=== PATIENT | female | born 1950 | race Caucasian/White ===

== ENCOUNTER 2016-07-03 21:47 | Inpatient (IN) | payer OTHER ==
[~2016-07-03] VITALS: Ht 157.5 cm; Wt 131.1 kg
[~2016-07-03 21:47] MED LIST: ADVAIR 250/501 DISK IH; AMBIEN10 MG PO; CEFDINIR300 MG PO; CELEXA40 MG PO; ECOTRIN325 MG PO; GLUCOPHAGE XR,500 MG PO; GLUCOTROL10 MG PO; LEVEMIR FL100 UNIT/1 SC; LOPRESSOR50 MG PO; MOTRIN800 MG PO; NEXIUM40 MG PO; NORCO 10/3251 TABLET PO; PRAVACHOL20 MG PO; SEROQUEL400 MG PO; SERTRALINE HCL100 MG PO; SOMA350 MG PO; SYNTHROID25 MCG PO; VENTOLIN HFA18 GM IH; ZOFRAN ODT4 MG PO
[2016-07-03 23:01] LABS: EOSINOPHIL (%) 0.8 % (0-5); EOSINOPHIL COUNT 0.1 K/uL (0-0.3); HEMATOCRIT 32.9 % (36.0-46.0); IMMATURE GRANULOCYTE (%) 0.5 % (0.0-0.7); IMMATURE GRANULOCYTE COUNT 0.1 K/uL; INSTRUMENT ABS NEUTROPHIL CT 8.6 K/uL; LYMPHOCYTE COUNT 0.6 K/uL (1.0-2.8); MCH 27.2 PG (29.0-34.0); MCHC 28.3 G/DL (30.0-36.0); MCV 96.2 FL (83-99); MEAN PLAT.VOLUME 8.8 uM^3 (9.5-12.4); MONOCYTE (%) 4.9 % (3-12); MONOCYTE COUNT 0.5 K/uL (0-0.8); NEUTROPHIL (%) 87.3 % (45-76); NEUTROPHIL COUNT 8.6 K/uL (1.8-6.4); PLATELET COUNT 226 K/uL (156-360); RBC DIS.WIDTH-CV 17.6 % (11.8-14.6); RBC DIS.WIDTH-SD 62.4 % (39-53); RED BLOOD COUNT 3.42 M/uL (3.80-5.20); WHITE BLOOD COUNT 9.9 K/uL (4.1-10.2)
[2016-07-03 23:10] LABS: CHLORIDE 107 mEq/L (99-109); POTASSIUM 5.6 mEq/L (3.7-5.4); SODIUM 141 mEq/L (136-147)
[2016-07-03 23:11] LABS: GLUCOSE 105 mg/dL (70-99)
[2016-07-03 23:12] LABS: INTER. NORMALIZED RATIO 1.1; PROTHROMBIN TIME 11.3 (9.2-11.2); PTT 26.1 (25-32)
[2016-07-03 23:13] LABS: ANION GAP 8 MEQ/L (2-14)
[2016-07-03 23:15] LABS: GFR ESTIMATE (CALCULATED) > 59 mL/min/
[2016-07-03 23:16] LABS: UREA NITROGEN (BUN) 34 mg/dL (9-23)
[2016-07-03 23:21] LABS: TROP-I INTERPRETATION NEGATIVE; TROPONIN-I 0.01 ng/mL (0.0-0.30)
[2016-07-03 23:59] LABS: ADD MIUA? YES; BILIRUBIN NEGATIVE; BLOOD NEGATIVE; COLOR YELLOW ((YELLOW)); GLUCOSE (STRIP) NEGATIVE; KETONES NEGATIVE; LEUKOCYTES TRACE; NITRITE NEGATIVE; PROTEIN (STRIP) NEGATIVE; SPECIFIC GRAVITY 1.018 (1.000-1.030); UROBILINOGEN 0.2 MG/DL (0.2-1.0)
[2016-07-04] VITALS (7 sets, daily range): BP systolic 119–178; BP diastolic 58–89
[2016-07-04 00:24] LABS: BACTERIA 1+ /HPF; EPITHELIAL CELLS RARE /HPF; HYALINE CASTS 0-5 /LPF; MUCUS TRACE /LPF; RED BLOOD CELLS 0-5 /HPF (0-5); UCUL ADDED? NO
[2016-07-04] MEDS ORDERED: PRAVACHOL40 MG PO (01:08)
[2016-07-04] MEDS ORDERED: LO-DOSE ASPIRIN81 M2 PO (01:08)
[2016-07-04] MEDS ORDERED: OMEPRAZOLE40 M1 PO (01:09)
[2016-07-04] MEDS ORDERED: LEVEMIR100 UNIT/2 SC (01:10)
[2016-07-04] MEDS ORDERED: HYZAAR 50-121 TABLET PO (01:11)
[2016-07-04] MEDS ORDERED: SYNTHROID75 MCG PO (01:11)
[2016-07-04] MEDS ORDERED: SPIRIVA1 INHALATI IH (01:11)
[2016-07-04] MEDS ORDERED: CARBAMAZEPINE200 MG PO (01:11)
[2016-07-04] MEDS ORDERED: LISINOPRIL10 MG PO (01:11)
[2016-07-04 04:19] LABS: HDL CHOLESTEROL 35 MG/DL (Desirable>=50); LDL CHOLESTEROL 62 mg/dL (Desirable<100); NON-HDL CHOLESTEROL 94 mg/dL (Desirable<160); TOTAL CHOLESTEROL 129 mg/dL (Desirable<200); TRIGLYCERIDES 158 MG/DL (Normal: <150)
[2016-07-04 06:01] LABS: TROP-I INTERPRETATION NEGATIVE; TROPONIN-I < 0.01 ng/mL (0.0-0.30)
[2016-07-04 06:21] LABS: Estimated Average Glucose 143 mg/dL (70-123); HEMOGLOBIN A1c (GLYCOHEMOGLOB) 6.6 % HGB (Below 5.7)
[2016-07-04 08:43] LABS: ANION GAP 10 MEQ/L (2-14); CHLORIDE 109 MEQ/L (99-109); GFR ESTIMATE (CALCULATED) > 59 mL/min/; GLUCOSE 129 mg/dL (70-99); POTASSIUM 5.5 MEQ/L (3.7-5.4); SAMPLE HEMOLYSIS CHECK 0; SAMPLE ICTERIC CHECK 0; SAMPLE LIPEMIA CHECK 0; SODIUM 145 MEQ/L (136-147); UREA NITROGEN (BUN) 26 mg/dL (9-23)
[2016-07-04 09:33] LABS: MCH 27.3 PG (29.0-34.0); MCHC 28.3 G/DL (30.0-36.0); MCV 96.5 FL (83-99); MEAN PLAT.VOLUME 9.3 uM^3 (9.5-12.4); PLATELET COUNT 234 K/uL (156-360); RBC DIS.WIDTH-CV 17.7 % (11.8-14.6); RBC DIS.WIDTH-SD 61.6 % (39-53); RED BLOOD COUNT 3.11 M/uL (3.80-5.20); WHITE BLOOD COUNT 8.4 K/uL (4.1-10.2)
[2016-07-04 11:19] LABS: TROP-I INTERPRETATION NEGATIVE; TROPONIN-I < 0.01 ng/mL (0.0-0.30)
[2016-07-04 21:49] LABS: POINT-OF-CARE METER ID UU14162508
[2016-07-05 03:38] VITALS: BP 119/57
[2016-07-05 06:58] VITALS: BP 140/63
[2016-07-05 07:04] LABS: HEMATOCRIT 31.2 % (36.0-46.0); MCH 26.9 PG (29.0-34.0); MCHC 27.9 G/DL (30.0-36.0); MCV 96.6 FL (83-99); MEAN PLAT.VOLUME 9.4 uM^3 (9.5-12.4); PLATELET COUNT 242 K/uL (156-360); RBC DIS.WIDTH-CV 17.6 % (11.8-14.6); RBC DIS.WIDTH-SD 61.1 % (39-53); RED BLOOD COUNT 3.23 M/uL (3.80-5.20); WHITE BLOOD COUNT 8.3 K/uL (4.1-10.2)
[2016-07-05 07:05] LABS: POINT-OF-CARE METER ID UU14162508
[2016-07-05 07:15] LABS: ANION GAP 7 MEQ/L (2-14); CHLORIDE 106 MEQ/L (99-109); GFR ESTIMATE (CALCULATED) > 59 mL/min/; GLUCOSE 163 mg/dL (70-99); SAMPLE HEMOLYSIS CHECK 0; SAMPLE ICTERIC CHECK 0; SAMPLE LIPEMIA CHECK 0; SODIUM 145 MEQ/L (136-147); UREA NITROGEN (BUN) 17 mg/dL (9-23)
[2016-07-05 07:20] LABS: POTASSIUM 4.3 MEQ/L (3.7-5.4)
[2016-07-05 11:44] VITALS: BP 125/72
[2016-07-05 11:47] LABS: POINT-OF-CARE METER ID UU14162508
[2016-07-05 15:59] LABS: POINT-OF-CARE METER ID UU14162508
[2016-07-05 16:07] VITALS: BP 133/62
[2016-07-05 19:00] VITALS: BP 152/71
[2016-07-06 00:48] VITALS: BP 118/61
[2016-07-06 04:44] VITALS: BP 129/60
[2016-07-06 07:50] VITALS: BP 175/78
[2016-07-06 08:26] LABS: POINT-OF-CARE METER ID UU14162508
[2016-07-06 08:39] LABS: GFR ESTIMATE (CALCULATED) > 59 mL/min/; UREA NITROGEN (BUN) 15 mg/dL (9-23)
[2016-07-06 11:21] VITALS: BP 118/56
[2016-07-06 16:00] VITALS: BP 133/97
[2016-07-06 16:42] LABS: POINT-OF-CARE METER ID UU14162508
[2016-07-06 21:25] LABS: POINT-OF-CARE METER ID UU14162508
[2016-07-06 22:00] VITALS: BP 140/65
[2016-07-07] VITALS (7 sets, daily range): BP systolic 121–198; BP diastolic 56–79
[2016-07-07 06:14] LABS: POINT-OF-CARE METER ID UU14162508
[2016-07-07 11:48] LABS: POINT-OF-CARE METER ID UU14162508
[2016-07-07 15:58] LABS: POINT-OF-CARE METER ID UU14162508
[2016-07-07 22:01] LABS: POINT-OF-CARE METER ID UU14162508
[2016-07-08 03:20] VITALS: BP 134/62
[2016-07-08 08:45] VITALS: BP 145/63
[2016-07-08 09:29] LABS: D-DIMER ELISA 1.15 mg/L FEU (< 0.57)
[2016-07-08 12:00] VITALS: BP 143/64
[2016-07-08 16:35] VITALS: BP 139/65
[2016-07-08 19:30] VITALS: BP 142/62
[2016-07-09 00:33] VITALS: BP 118/55
[2016-07-09 03:54] VITALS: BP 147/66
[2016-07-09 07:54] VITALS: BP 169/69
[2016-07-09] MEDS ORDERED: OXYCODONE HCL5 MG PO (08:17)
[2016-07-09] MEDS ORDERED: OXYCONTIN10 MG PO (08:17)
[2016-07-09 11:48] VITALS: BP 144/70
== END 2016-07-09 16:06 | DRG 184 ==
LOC: EME → EDBD 21:47 → EME 21:47 → EDOF 07-04 01:03 → 5WEST 07-04 01:50 → 2EAST 07-04 10:17 → 5WEST 07-04 10:17 → 2EAST 07-04 13:36
PROVIDERS: Emergency Medicine; Family Medicine; Hospitalist; Internal Medicine; Physician Assistant
DX: S22.41XA Multiple fractures of ribs, right side, initial encounter for closed fracture (principal); Z68.43 Body mass index [BMI] 50.0-59.9, adult; E11.9 Type 2 diabetes mellitus without complications; I10 Essential (primary) hypertension; R55 Syncope and collapse; W18.30XA Fall on same level, unspecified, initial encounter; R52 Pain, unspecified; J44.9 Chronic obstructive pulmonary disease, unspecified; E87.5 Hyperkalemia; R09.02 Hypoxemia; Y92.002 Bathroom of unspecified non-institutional (private) residence as the place of occurrence of the external cause; E03.9 Hypothyroidism, unspecified; E66.01 Morbid (severe) obesity due to excess calories; I45.10 Unspecified right bundle-branch block; G35 Multiple sclerosis; E78.5 Hyperlipidemia, unspecified; B37.2 Candidiasis of skin and nail; G89.11 Acute pain due to trauma; F32.9 Major depressive disorder, single episode, unspecified; F41.9 Anxiety disorder, unspecified
CPT/HCPCS: 70450; 71260; 71275; 73030; 73080; 73110; 73502; 73564; 74177; 80048; 80061; 81003; 82565; 82948; 83036; 83605; 84484; 84520; 85025; 85027; 85379; 85610; 85730; 87040; 93005; 93306; 94010; 94640; 94640 76; 94760; 94799; 99202; 99281; 99285; J0696; J1650; J1815; J2270; J2405; J7050